=== PATIENT | male | born 1995 | race Caucasian/White ===

== ENCOUNTER 2019-03-07 17:35 | Emergency (ER) | payer MEDICAID ==
[~2019-03-07] VITALS: Ht 167.6 cm; Wt 84.9 kg
[2019-03-07 18:42] VITALS: Ht 167.6 cm; Wt 84.9 kg
[2019-03-07 19:38] VITALS: BP 133/87
== END 2019-03-07 19:38 | disposition home or self-care (01) ==
LOC: ED 17:35
DX: S61.411A Laceration without foreign body of right hand, initial encounter (principal); W22.8XXA Striking against or struck by other objects, initial encounter; Y93.89 Activity, other specified; Y92.89 Other specified places as the place of occurrence of the external cause; Y99.8 Other external cause status